=== PATIENT | male | born 1975 | race Caucasian/White ===

== ENCOUNTER 2019-07-06 14:36 | Emergency (ER) | payer OTHER ==
[2019-07-06 15:06] VITALS: BP 132/60; PULSE 86; O2SAT 100
[2019-07-06] MEDS ORDERED: Norflex 60 MG/2 ML IM ONE (15:46)
[2019-07-06] MEDS ORDERED: TORAdol 30 mg Injection IM ONE (15:47)
--- NOTE | 2019-07-06 15:52 | ERPHSYRPT ---
- History of Present Illness Time Seen by Provider: 07/06/19 15:27 Source: patient Exam Limitations: no limitations Patient Subjective Stated Complaint: "I have pain in my lower middle back and it radiates to my lower left side of back and down my left leg. I have trouble with my siatica, was suppose to go to pain clinic on Thursday but couldn't make it because my kids were sick." Triage Nursing Assessment: Pt is alert and oriented x 3, able to walk with unsteady gait. Complains of lower left back pain that radiates to left leg. Resp easy, lungs clear and equal throughout. Abd soft non tender, denies n/v/d. No injury noted, no deformities or swelling noted. Pt has chronic back issues and states it is hard to walk, move, or bend over. Physician History: 44 YO with chronic back pain on pain meds missed pain clinic apt 2 days ago is here after he lifted a heavy object 2 days ago and pain got flared in low back with radiation to LLE without numbness/weakness. no loss of bowel /bladder control , no perineal numbness. no direct trauma . Timing/Duration: day(s) (2), sudden, worse Method of Injury: lifting Quality: sharp Back Pain Location: lumbar spine Back Pain Radiation: buttocks Severity of Pain-Max: severe Severity of Pain-Current: severe Modifying Factors: Improves With: immobilization, movement, pain medication, rest Associated Symptoms: lower back pain, No fever, No urinary incontinence, No loss of bowel control, No constipation, No sensory/motor loss, No tingling in legs/feet Previous symptoms: same symptoms as today Allergies/Adverse Reactions: cyclobenzaprine HCl [From Flexeril] Allergy (Mild, Verified 05/16/16 13:10) Hives tramadol Allergy (Mild, Verified 05/16/16 13:10) Nausea Home Medications: Hydrocodone Bit/Acetaminophen [[place] 7.5-325 Tablet] 1 each PO QID 01/07/16 [ History] Albuterol 2.5 mg/0.5 ml [PROVENTIL Solution 2.5 MG/0.5 ML] 2 puffs NEB Q4H PRN PRN 07/06/19 [History] Gabapentin 800 mg PO QID 07/06/19 [History] Quetiapine Fumarate [Seroquel] 800 mg PO HS 07/06/19 [History] hydrOXYzine pamoate [Hydroxyzine Pamoate] 50 mg PO QID 07/06/19 [History] Hx Tetanus, Diphtheria Vaccination/Date Given: No Hx Influenza Vaccination/Date Given: No Hx Pneumococcal Vaccination/Date Given: No Immunizations Up to Date: Yes - Review of Systems Constitutional: No Symptoms Eyes: No Symptoms Ears, Nose, & Throat: No Symptoms Respiratory: No Symptoms Cardiac: No Symptoms Abdominal/Gastrointestinal: No Symptoms Genitourinary Symptoms: No Symptoms Musculoskeletal: Back Pain Skin: No Symptoms Neurological: No Symptoms Psychological: No Symptoms Endocrine: No Symptoms Hematologic/Lymphatic: No Symptoms Immunological/Allergic: No Symptoms - Past Medical History Pertinent Past Medical History: Yes Neurological History: No Pertinent History Cardiac History: No Pertinent History Respiratory History: No Pertinent History Endocrine Medical History: No Pertinent History Musculoskeletal History: Osteoarthritis Psycho-Social History: Anxiety Other Medical History: curvature of the spine. - Past Surgical History Past Surgical History: No - Social History Smoking Status: Current every day smoker How long have you smoked: 20 years Exposure to second hand smoke: No Drug Use: none Patient Lives Alone: No - Nursing Vital Signs Nursing Vital Signs: Initial Vital Signs Temperature 97.8 F 07/06/19 14:57 Pulse Rate 86 07/06/19 14:57 Respiratory Rate 18 07/06/19 14:57 Blood Pressure 132/60 07/06/19 14:57 O2 Sat by Pulse Oximetry 100 07/06/19 14:57 Pain Scale Pain Intensity [Left Back] 10 Pain Intensity 5 - Physical Exam General Appearance: no apparent distress Ears, Nose, Throat Exam: normal ENT inspection, pharynx normal Neck Exam: normal inspection, non-tender, supple, full range of motion Respiratory Exam: normal breath sounds, lungs clear, respiratory distress Cardiovascular Exam: regular rate/rhythm, normal heart sounds Back Exam: normal inspection, normal range of motion, decreased range of motion , muscle spasm, point tenderness (left sacroiliac area , no definite midline tenderness), No CVA tenderness Extremity Exam: normal inspection, normal range of motion, pelvis stable Neurologic Exam: alert, oriented x 3, cooperative, operations representative II-XII nml as tested, normal mood/affect, sensation nml, other (limping because of pain ), No motor deficits, No sensory deficit Skin Exam: normal color, warm, dry SpO2 Interpretation: normal SpO2: 100 O2 Delivery: Room Air - Course Nursing assessment & vital signs reviewed: Yes Ordered Tests: Medication Summary Discontinued Medications Generic Name Dose Route Start Last Admin Trade Name Alton PRN Reason Stop Dose Admin Ketorolac Tromethamine 30 mg 07/06/19 15:47 07/06/19 15:57 Toradol 30 Mg Injection IM 07/06/19 15:48 30 mg STAT ONE Administration Ketorolac Tromethamine Confirm 07/06/19 15:54 Toradol 30 Mg Injection Administered 07/06/19 15:55 Dose 30 mg .ROUTE .STK-MED ONE Orphenadrine Citrate 60 mg 07/06/19 15:46 07/06/19 15:56 Norflex 60 Mg/2 Ml IM 07/06/19 15:47 60 mg STAT ONE Administration Orphenadrine Citrate Confirm 07/06/19 15:54 Norflex 60 Mg/2 Ml Administered 07/06/19 15:55 Dose 60 mg .ROUTE .STK-MED ONE - Progress Progress: improved, pain not gone completely, re-examined Progress Note: 07/06/19 15:54 has chronic back pain which flared up with lifting heavy object. has similar sx before as well. intact neuro LE. out of pain meds. given toradol/norflex, feeling better. will continue with muscle relaxant and NSAIDS to go home and outpatient pain clinic follow up. discussed sx.sn of worsening needing return which he seems understanding Counseled pt/family regarding: diagnosis, need for follow-up, smoking cessation - Departure Departure Disposition: Home Clinical Impression: Sciatica Qualifiers: Laterality: left Qualified Code(s): M54.32 - Sciatica, left side Condition: Stable Critical Care Time: No Referrals: DOCTOR,NO FAMILY [Primary Care Provider] - ALICJA OJ MD [ACTIVE STAFF] - (1-2 days for re evaluations) Instructions: Low Back Pain (DC), Sciatica (DC) Additional Instructions: take pain meds/muscle relaxants as needed. follow up with PCP /Pain clinic for re evaluation. return to ER for worsening pain/numbness, weakness of lower extremities, or loss of bowel or bladder control Prescriptions: Ibuprofen 600 mg PO Q6HPRN PRN 10 Days #20 tablet PRN Reason: Pain Tizanidine HCl 4 mg [Zanaflex 4 MG] 4 mg PO Q8H PRN PRN #20 tablet PRN Reason: Pain
[2019-07-06] MEDS ORDERED: Norflex 60 MG/2 ML ONE (15:54)
[2019-07-06] MEDS ORDERED: TORAdol 30 mg Injection ONE (15:54)
== END 2019-07-06 16:50 | disposition home or self-care (01) ==
LOC: ED 14:36
DX: M54.32 Sciatica, left side (principal)
CPT/HCPCS: 96372; 99284; J1885; J2360

== ENCOUNTER 2024-09-19 15:40 | Emergency (ER) | payer OTHER ==
--- NOTE | 2024-09-19 16:44 | ERPHSYRPT ---
- History of Present Illness Time Seen by Provider: 09/19/24 16:44 Source: patient, family Exam Limitations: no limitations Physician History: This is a 49-year-old white male patient who arrives by private vehicle accompanied by his family with the complaint of right ankle pain. Patient was playing basketball around noon earlier this afternoon when he rolled his right ankle. The patient recently had a right shoulder surgery. Patient has a history of peripheral neuropathy, osteoarthritis and anxiety. He is a daily smoker of tobacco cigarettes. Patient states that he is allergic to cyclobenzaprine, tramadol, Toradol and trazodone. Patient states he can take Percocet. Patient has been walking on it since he injured it. Occurred: this afternoon Quality: constant, aching Severity of Pain-Max: moderate Severity of Pain-Current: moderate Lower Extremities Pain: ankle: right Modifying Factors: Improves With: movement Associated Symptoms: other (Can bear weight but hurts to do so.) Allergies/Adverse Reactions: cyclobenzaprine HCl [From Flexeril] Allergy (Mild, Verified 09/19/24 16:36) Hives tramadol Allergy (Mild, Verified 09/19/24 16:36) Nausea Home Medications: Hydrocodone/Acetaminophen [[place] 7.5-325 Tablet] 1 each PO QID 01/07/16 [History] Albuterol 2.5 mg/0.5 ml [PROVENTIL Solution 2.5 MG/0.5 ML] 2 puffs NEB Q4H PRN PRN 07/06/19 [History] Gabapentin 800 mg PO QID 07/06/19 [History] Quetiapine Fumarate [Seroquel] 800 mg PO HS 07/06/19 [History] hydrOXYzine pamoate [Hydroxyzine Pamoate] 50 mg PO QID 07/06/19 [History] Hx Tetanus, Diphtheria Vaccination/Date Given: No Hx Influenza Vaccination/Date Given: No Hx Pneumococcal Vaccination/Date Given: No Travel Risk - International Travel Have you traveled outside of the country in past 3 weeks: No - Emerging Infectious Disease Are you exhibiting symptoms associated with any current EIDs: No - Review of Systems Constitutional: No Symptoms Eyes: No Symptoms Ears, Nose, & Throat: No Symptoms Respiratory: No Symptoms Cardiac: No Symptoms Abdominal/Gastrointestinal: No Symptoms Genitourinary Symptoms: No Symptoms Musculoskeletal: Fall, Injury (Right ankle) Skin: No Symptoms Neurological: No Symptoms Psychological: No Symptoms Endocrine: No Symptoms Hematologic/Lymphatic: No Symptoms Immunological/Allergic: No Symptoms All Other Systems: Reviewed and Negative - Past Medical History Pertinent Past Medical History: Yes Neurological History: Peripheral Neuropathy Cardiac History: No Pertinent History Respiratory History: No Pertinent History Endocrine Medical History: No Pertinent History Musculoskeletal History: Osteoarthritis GI Medical History: Other Psycho-Social History: Anxiety Other Medical History: curvature of the spine.chronic neck and back surgery - Past Surgical History Past Surgical History: Yes Musculoskeletal: Orthopedic Surgery Other Surgical History: shoulder - Social History Smoking Status: Current every day smoker How long have you smoked: 20 years Exposure to second hand smoke: No Drug Use: none Patient Lives Alone: No - Nursing Vital Signs Nursing Vital Signs: Initial Vital Signs Temperature 97.0 F 09/19/24 16:40 Pulse Rate 77 09/19/24 16:40 Respiratory Rate 18 09/19/24 16:40 Blood Pressure 125/82 09/19/24 16:40 O2 Sat by Pulse Oximetry 98 09/19/24 16:40 Pain Scale Pain Intensity 9 - Physical Exam General Appearance: no apparent distress, alert, anxiety Eyes, Ears, Nose, Throat Exam: normal ENT inspection, moist mucous membranes Neck Exam: normal inspection, non-tender, supple, full range of motion Cardiovascular/Respiratory Exam: chest non-tender, no respiratory distress Gastrointestinal/Abdominal Exam: non-tender Back Exam: normal inspection, normal range of motion, No CVA tenderness, No vertebral tenderness Hips Exam: bilateral: non-tender, normal inspection, normal range of motion, no evidence of injury Legs Exam: bilateral leg: non-tender, normal inspection, normal range of motion, no evidence of injury Knees Exam: bilateral knee: non-tender, normal inspection, normal range of mo tion, no evidence of injury Ankle Exam: right ankle: bone tenderness (Right lateral malleolus), soft tissue tenderness (In the region of the right lateral malleolus), swelling (In the region of the right lateral malleolus), left ankle: non-tender, normal inspection, normal range of motion, no evidence of injury Foot Exam: bilateral foot: non-tender, normal inspection, normal range of motion, no evidence of injury Neuro/Tendon Exam: normal sensation, normal motor functions, normal tendon functions, no evidence tendon injury Mental Status Exam: alert, oriented x 3, cooperative Skin Exam: normal color, warm, dry SpO2 Interpretation: normal O2 Delivery: Room Air - Course Nursing assessment & vital signs reviewed: Yes Ordered Tests: Active Orders 24 hr Category Date Time Status Splint STAT Care 09/19/24 17:49 Active ANKLE (3 VIEWS) Stat Exams 09/19/24 16:51 Completed Medication Summary Discontinued Medications Generic Name Dose Route Start Last Admin Trade Name Alton PRN Reason Stop Dose Admin Oxycodone/Acetaminophen 1 tab 09/19/24 17:50 09/19/24 18:04 Oxycodone Hcl/Apap 5 Mg/325 Mg Tablet PO 09/19/24 17:51 1 tab STAT STA Administration Oxycodone/Acetaminophen Confirm 09/19/24 17:56 Oxycodone Hcl/Apap 5 Mg/325 Mg Tablet Administered 09/19/24 17:57 Dose 1 tab .ROUTE .STK-MED ONE - Progress Progress: improved, pain not gone completely Progress Note: 09/19/24 18:30 My medical decision making of the assignment of low complexity of this patient's medical issue today is based on review of the patient's past medical history, review the patient's medication list, reviewed patient drug allergy list, history present illness and physical findings on examination. The workup in this patient includes x-ray of the right ankle. Differential diagnosis includes but is not limited to fracture of the right ankle, dislocation of the right ankle, right ankle sprain. The radiologist interpreted the patient's final report of the right ankle study. The impression states nondisplaced, oblique fracture lateral malleolus with anterior lateral soft tissue swelling. Ortho-Glass splint is placed. Neurovascular check shows the patient to be neurovascularly intact with good cap refill. Counseled pt/family regarding: diagnosis, need for follow-up, rad results Medical Desision Making - Independent Historian Additional History obtained from: Mother - Diagnostic Testing Diagnostic test were ordered, analyzed, and reviewed by me: Yes Radiological Interpretation: Reviewed by me, Teleradiologist Report - Risk of complications The pt has a mod risk of morbidity or mortality based on: Need for prescription drug management - Departure Departure Disposition: Home Clinical Impression: Fracture of lateral malleolus of right ankle Condition: Stable Critical Care Time: No Referrals: NILDA RIOS [NON-STAFF PHY W/O PRIVILEGES] - [facility]-Ortho M-F [id number] (Nondisplaced fracture right lateral malleolus) Additional Instructions: Nonweightbearing. Ice pack to the area 3 times a day for the next 3 days. Follow-up tomorrow, 09/20/2024, at 8 AM, at the [facility] orthopedic clinic for further evaluation and management. If there are no contraindications, add ibuprofen 600 mg orally 3 times a day with food. Forms: Ortho Referral, Work/School Release Form Prescriptions: Oxycodone HCl/Acetaminophen [Percocet 5-325 mg Tablet] 1 each PO Q8H PRN PRN #6 tablet MDD 3 PRN Reason: Moderate To Severe Pain
[2024-09-19 16:46] VITALS: TEMP 97
--- NOTE | 2024-09-19 17:08 | XRAY ---
Indication: Twisting injury. Comparison: None 3 view right ankle demonstrates nondisplaced oblique fracture lateral malleolus with anterolateral soft tissue swelling. No other bony, articular, or soft tissue abnormalities.
[2024-09-19] MEDS ORDERED: PERCOCET TABLET 5/325MG ONE (17:56)
[2024-09-19] MEDS: PERCOCET TABLET 5/325MG PO STA (18:04)
[2024-09-19 19:51] VITALS: BP 128/78; PULSE 78; RESP 18; O2SAT 97
== END 2024-09-19 19:51 | disposition home or self-care (01) ==
LOC: ED 15:40
DX: S82.64XA Nondisplaced fracture of lateral malleolus of right fibula, initial encounter for closed fracture (principal); X50.0XXA Overexertion from strenuous movement or load, initial encounter; Y93.67 Activity, basketball; Z79.891 Long term (current) use of opiate analgesic; Z79.899 Other long term (current) drug therapy; Z72.0 Tobacco use
CPT/HCPCS: 29515; 73610; 99283; A9270-GY